=== PATIENT | female | born 1940 | race Caucasian/White ===

== ENCOUNTER 2019-09-28 05:39 | Emergency (ER) | payer MEDICARE, SELFPAY ==
[2019-09-28] VITALS (38 sets, daily range): BP systolic 120–171; BP diastolic 74–118; PULSE 75–103; RESP 12–20; TEMP 36.6; O2SAT 94–98; BMI 29.9
--- NOTE | 2019-09-28 06:01 | PC.NURSE ---
pt presents to ed with c/o's of allergic reaction to unknown substance. reports having swollen red tongue and throat. with headache that began in back of neck but is now in the frontal lobe. also reports having some pressure in chest that she rates a 4-5/10.
--- NOTE | 2019-09-28 06:02 | XRR_ITS ---
PROCEDURE INFORMATION: Exam: XR Chest, 1 View Exam date and time: 09/28/2019 6:05 AM Age: 78 years old Clinical indication: Allergic reaction; Dyspnea TECHNIQUE: Imaging protocol: XR of the chest Views: 1 view. COMPARISON: No relevant prior studies available. FINDINGS: Lungs: No lung consolidation or pulmonary edema. Calcified granuloma in the left mid lung zone. Pleural space: No pleural effusion or pneumothorax. Heart/Mediastinum: The heart is not enlarged. The mediastinal contours are normal. Calcified left hilar lymph nodes from prior granulomatous disease. Bones/joints: No acute osseous abnormality. XR/XR chest 1V portable [id number] IMPRESSION: No acute abnormality.
--- NOTE | 2019-09-28 06:02 | W.ED.ALLEREA ---
HPI - Allergic Reaction General: Chief complaint: Allergic Reaction Stated complaint: ALLERGIC REACTION Time Seen by Provider: 09/28/19 05:59 History of Present Illness: HPI narrative: 78-year-old female presents emergency room with complaint of swelling in her tongue. States she woke up with it she has had this in the past he does not know anything she took is new or different she not had any hives rash pruritus denies any difficulty breathing or wheezing. Took Benadryl prior to arriving. When first came to see the patient she is sitting comfortably she has no pruritus or hives no difficulty breathing. MD complaint: allergic reaction Onset (ago): hour(s) (2) Associated symptoms: Reports tongue swelling; Deny abdominal pain, difficulty breathing, difficulty swallowing, dizziness, facial swelling, hoarseness, itching, lip swelling, nausea, rash or vomiting Severity: mild Treatment prior to arrival: benadryl (50mg) Previous Allergic Reaction History: prior ED visit(s) Review of Systems Const: Denies: fever, chills, body aches, change in appetite, fatigue or malaise ENMT: Denies: hoarseness Card: Denies: chest pain, edema, shortness of breath on exertion or shortness of breath when lying down Resp: Denies: shortness of breath, productive cough or non-productive cough GI: Denies: abdominal pain, nausea, vomiting or difficulty swallowing : Denies: flank pain, difficulty urinating, painful urination, urinary frequency or urinary urgency Skin/Breast: Denies: rash or itching Neuro: Denies: dizziness All/Imm: Reports: tongue swelling; Denies: facial swelling PFSH ED PFSH: Statuses (acute, chronic, etc) shown below reflect problem list status as previously entered and may not be historically accurate Social History Smoking and tobacco status: former smoker Physical Exam Const: COMMON NORMALS: no apparent distress GENERAL APPEARANCE: cooperative and comfortable ORIENTATION/CONSCIOUSNESS: Yes awake, Yes oriented to person, Yes oriented to place and Yes oriented to time HENMT: COMMON NORMALS: normocephalic, head/scalp atraumatic, hearing grossly normal bilaterally, external ears normal, EAC's normal, TM's normal bilaterally, nasal mucous membranes and turbinates normal, moist oral mucous membranes and oropharynx normal HEAD & SCALP: normocephalic and atraumatic NOSE: nasal mucous membranes and turbinates normal EXTERNAL EAR: Yes external ears normal EXTERNAL AUDITORY CANAL: EAC's normal TYMPANIC MEMBRANE: TM's normal bilaterally Eye: COMMON NORMALS: PERRL, EOMs intact bilaterally, conjunctivae normal and no scleral icterus CONJUNCTIVA: Yes conjunctivae normal PUPIL: Yes PERRL Neck/C-Spine: COMMON NORMALS: full ROM, no lymphadenopathy, supple and no JVD Lymph: LYMPHATIC: no lymphadenopathy noted and no lymphedema noted Resp: COMMON NORMALS: normal respiratory effort, no retractions, no use of accessory muscles and clear to auscultation bilaterally AUSCULTATION: clear to auscultation bilaterally Cardio: COMMON NORMALS: no JVD, regular rate, regular rhythm and no murmurs RATE: regular rate RHYTHM: regular rhythm GI: COMMON NORMALS: soft to palpation and no hepatosplenomegaly AUSCULTATION: Yes normoactive bowel sounds PALPATION: Yes soft, No tender, No guarding and Yes no hepatosplenomegaly Extremity: COMMON NORMALS: normal to inspection, normal capillary refill, no clubbing, cyanosis or edema, no calf tenderness and no pedal edema Neuro: SENSORIUM/ORIENTATION: Yes oriented to person, Yes oriented to place and Yes oriented to time Skin: COMMON NORMALS: no rashes or lesions noted GENERAL SKIN EXAM: no rashes or lesions noted Course ED course: Patient had no significant hives or wheezing. She was observed for a time and was doing well no further complaints and was discharged home she did complain of some chest tightness we did a serial troponin which was negative as well return if has worsening symptoms. Vital Signs: Vital signs: Vital Signs Temperature 97.8 F 09/28/19 05:45 Pulse Rate 102 H 09/28/19 08:57 Respiratory Rate 14 09/28/19 08:57 Blood Pressure 137/79 09/28/19 08:57 Pulse Oximetry 95 09/28/19 08:57 MDM - Allergic Reaction Lab Data: Labs: Lab Results 09/28/19 09/28/19 09/28/19 Range/Units 06:20 06:20 06:20 WBC 8.6 (4.0-10.0) 10^3/ uL RBC 4.74 (4.1-5.3) 10^6/u L Hgb 13.7 (11.5-15.3) g/dL Hct 41.6 (37.0-47.0) % MCV 87.8 (81-99) fL MCH 28.9 (28.0-34.0) pg MCHC 32.9 (30.0-36.0) g/dL RDW 12.7 (12.1-15.1) % Plt Count 129 L (130-400) 10^3/c mm MPV 11.8 H (7.4-10.4) fL Neut % (Auto) 46.5 % Lymph % (Auto) 40.7 % [place] % (Auto) 8.9 % Eos % (Auto) 2.3 % Baso % (Auto) 0.8 % Neut # (Auto) 4.0 (1.8-7.7) 10^3/u L Lymph # (Auto) 3.5 (0.8-4.8) 10^3/u L [place] # (Auto) 0.8 (0.2-0.9) 10^3/u L Eos # (Auto) 0.2 (0.0-0.8) 10^3/u L Baso # (Auto) 0.1 (0.0-0.1) 10^3/u L Nucleated RBC % (a uto) 0 % Nucleated RBCs # 0.0 /100WBC Sodium 136 (136-145) mmol/L Potassium 4.7 (3.5-5.1) mmol/L Chloride 100 (98-107) mmol/L Carbon Dioxide 23 (22-29) mmol/L Anion Gap 17.7 (5-19) BUN 13 (8-23) mg/dL Creatinine 0.6 (0.5-0.9) mg/dL Glucose 217 H (74-106) mg/dL Calcium 9.8 (8.8-10.2) mg/Dl Total Bilirubin 0.8 (0.15-1.2) mg/dL AST 32 (0-32) U/L ALT 23 (0-33) U/L Alkaline Phosphata se 98 (35-105) IU/L Troponin T Baselin e 8 (0-10) ng/mL Troponin T 120 Min lummi (0-10) ng/mL Delta Troponin T (0-10) ABS# Total Protein 7.8 (6.6-8.7) g/dL Albumin 4.4 (3.5-5.2) g/dL Globulin 3.4 (1.3-4.6) g/dL 09/28/19 Range/Units 08:20 WBC (4.0-10.0) 10^3/ uL RBC (4.1-5.3) 10^6/u L Hgb (11.5-15.3) g/dL Hct (37.0-47.0) % MCV (81-99) fL MCH (28.0-34.0) pg MCHC (30.0-36.0) g/dL RDW (12.1-15.1) % Plt Count (130-400) 10^3/c mm MPV (7.4-10.4) fL Neut % (Auto) % Lymph % (Auto) % [place] % (Auto) % Eos % (Auto) % Baso % (Auto) % Neut # (Auto) (1.8-7.7) 10^3/u L Lymph # (Auto) (0.8-4.8) 10^3/u L [place] # (Auto) (0.2-0.9) 10^3/u L Eos # (Auto) (0.0-0.8) 10^3/u L Baso # (Auto) (0.0-0.1) 10^3/u L Nucleated RBC % (a uto) % Nucleated RBCs # /100WBC Sodium (136-145) mmol/L Potassium (3.5-5.1) mmol/L Chloride (98-107) mmol/L Carbon Dioxide (22-29) mmol/L Anion Gap (5-19) BUN (8-23) mg/dL Creatinine (0.5-0.9) mg/dL Glucose (74-106) mg/dL Calcium (8.8-10.2) mg/Dl Total Bilirubin (0.15-1.2) mg/dL AST (0-32) U/L ALT (0-33) U/L Alkaline Phosphata se (35-105) IU/L Troponin T Baselin e (0-10) ng/mL Troponin T 120 Min lummi 7.83 (0-10) ng/mL Delta Troponin T -0.17 L (0-10) ABS# Total Protein (6.6-8.7) g/dL Albumin (3.5-5.2) g/dL Globulin (1.3-4.6) g/dL Discharge Plan Discharge Patient Disposition: Home, Self-Care Clinical Impression: Allergic reaction Condition: Stable Prescriptions: No Action Aspirin Low Dose 81 mg 81 mg PO RF: 0 atenolol 25 mg 25 mg PO BID RF: 0 Discharge Orders: Discharge Order (Routine); Ordered 09/28/19 Ordered By: Mitchell Paris Referrals: Lamont Ribera, [facility] [Primary Care Provider] - Discharge Diet: Advance as tolerated Discharge Activity: Increase activity as tolerated Patient Instructions: Allergic Reaction, Diphenhydramine (By mouth) Activity Restrictions/Additional Instructions: You may use [id number] Benadryl as needed for symptoms follow-up with your primary care physician as needed return to the ER if symptoms worsen. 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
[2019-09-28 06:27] LABS: Basophils # 0.1 10^3/uL (0.0-0.1); Basophils % 0.8 %; Eosinophils # 0.2 10^3/uL (0.0-0.8); Eosinophils % 2.3 %; Hematocrit 41.6 % (37.0-47.0); Hemoglobin 13.7 g/dL (11.5-15.3); Lymphocytes # 3.5 10^3/uL (0.8-4.8); Lymphocytes % 40.7 %; Mean Corpuscular HGB Conc 32.9 g/dL (30.0-36.0); Mean Corpuscular Hemoglobin 28.9 pg (28.0-34.0); Mean Corpuscular Volume 87.8 fL (81-99); Mean Platelet Volume 11.8 fL (7.4-10.4); Monocytes # 0.8 10^3/uL (0.2-0.9); Monocytes % 8.9 %; Neutrophils % 46.5 %; Nucleated Red Blood Cells % 0 %; Platelet Count 129 10^3/cmm (130-400); Red Blood Count 4.74 10^6/uL (4.1-5.3); Red Cell Distribution Width 12.7 % (12.1-15.1); White Blood Count 8.6 10^3/uL (4.0-10.0)
[2019-09-28] MEDS: famotidine 20 mg/2 mL INJ 40 MG IVP (06:29)
[2019-09-28 06:42] LABS: Alanine Aminotransferase 23 U/L (0-33); Albumin Level 4.4 g/dL (3.5-5.2); Alkaline Phosphatase 98 IU/L (35-105); Anion Gap 17.7 (5-19); Blood Urea Nitrogen 13 mg/dL (8-23); Calcium 9.8 mg/Dl (8.8-10.2); Carbon Dioxide 23 mmol/L (22-29); Chloride 100 mmol/L (98-107); Globulin 3.4 g/dL (1.3-4.6); Glucose 217 mg/dL (74-106); Potassium 4.7 mmol/L (3.5-5.1); Sodium 136 mmol/L (136-145); Total Bilirubin 0.8 mg/dL (0.15-1.2); Total Protein 7.8 g/dL (6.6-8.7)
[2019-09-28 06:43] LABS: Troponin(5th) Baseline 8 ng/mL (0-10)
[2019-09-28 06:44] LABS: Aspartate Amino Transferase 32 U/L (0-32)
--- NOTE | 2019-09-28 07:02 | PC.NURSE ---
Report received from Whitley Myers RN.
--- NOTE | 2019-09-28 07:25 | PC.NURSE ---
Pt ambulated to and from bathroom with no assist
[2019-09-28 08:50] LABS: Troponin 5 2HR 7.83 ng/mL (0-10)
[2019-09-28 09:13] LABS: Troponin 5 2HR Delta -0.17 ABS# (0-10)
--- NOTE | 2019-09-28 12:17 | ECG_ITS ---
Measurements Intervals [place] Rate: 77 P: SD: 0 QRS: -31 QRSD: 78 T: 13 QT: 399 QTc: 452 ATRIAL FIBRILLATION LEFT AXIS DEVIATION [QRS AXIS < -30] No previous ECG available for comparison Electronically Signed On 09-28-2019 11:33:51 RN NEONATAL ICU by Wilfredo Ruiz M.D. [email or web address]
== END 2019-09-28 09:05 | disposition home or self-care (01) ==
PROVIDERS: Emergency Provider Family Medicine; Family Provider Nurse Practitioner; PCP Nurse Practitioner
DX: T78.40XA Allergy, unspecified, initial encounter (principal); X58.XXXA Exposure to other specified factors, initial encounter; Z79.82 Long term (current) use of aspirin; Z87.891 Personal history of nicotine dependence
CPT/HCPCS: 36415; 71045; 80053; 84484; 85025; 93005; 96374; 99283; J2930; J3490

== ENCOUNTER → 2019-10-04 11:23 | Outpatient (BNVA) | payer MEDICARE, SELFPAY | PROVIDERS: Family Provider Nurse Practitioner; PCP Nurse Practitioner; Visit Provider Nurse Practitioner | DX: E11.9 Type 2 diabetes mellitus without complications (principal); E03.8 Other specified hypothyroidism | CPT/HCPCS: 81003; 83036; 84443 ==

== ENCOUNTER 2020-02-14 20:52 | Inpatient (IN) | payer MEDICARE, SELFPAY ==
[2020-02-14] VITALS (7 sets, daily range): BP systolic 107–147; BP diastolic 81–84; PULSE 88–107; RESP 17–22; TEMP 37.1; O2SAT 97–99; BMI 29.7
--- NOTE | 2020-02-14 21:06 | XRR_ITS ---
PROCEDURE INFORMATION: Exam: XR Right Femur Exam date and time: 02/14/2020 9:38 PM Age: 79 years old Clinical indication: Injury or trauma; Fall; Initial encounter; Blunt trauma; Thigh or upper leg; Right TECHNIQUE: Imaging protocol: XR Right femur. Views: 2 views. COMPARISON: No relevant prior studies available. FINDINGS: Bones/joints: There is a mildly overriding right intertrochanteric femur fracture. There is mild medial displacement of the lesser trochanter. No fracture in the distal femur. No definite knee joint effusion. Soft tissues: Unremarkable. XR/XR femur RT min 2V* [id number] IMPRESSION: There is a mildly overriding right intertrochanteric femur fracture.
--- NOTE | 2020-02-14 21:06 | XRR_ITS ---
PROCEDURE INFORMATION: Exam: XR Right Hip with Pelvis when Performed Exam date and time: 02/14/2020 9:08 PM Age: 79 years old Clinical indication: Injury or trauma; Fall; Initial encounter; Blunt trauma (contusions or hematomas); Right; Hip TECHNIQUE: Imaging protocol: XR Right hip with pelvis when performed. Views: 1 view. COMPARISON: No relevant prior studies available. FINDINGS: Bones/joints: There is a mildly overriding and angulated right intertrochanteric femur fracture. There is medial displacement of the lesser trochanter fragment. There are moderate to severe degenerative changes in the right hip. Soft tissues: Unremarkable. XR/XR hip RT 2-3V wo/w pel* [id number] IMPRESSION: There is a mildly overriding and angulated right intertrochanteric femur fracture.
[2020-02-14] MEDS: fentaNYL 50 mcg/mL INJ 2mL IVP ×3 (21:19→23:14)
--- NOTE | 2020-02-14 22:32 | P.HP_ITS ---
Providers/Chief Complaint Primary Care Provider: Lamont Ribera, CORIEC Chief Complaint: FALL/HIP PAIN History of Present Illness Adwoa Geramin is a 79 year old female who carries diagnosis of hypothyroidism, diabetes, atrial fibrillation not on anticoagulation, does not take any levothyroxine or anti-hyperglycemics came in after sustaining a fall. Patient is stating that she does not like to take any medications, she is only taking atenolol, today she was playing [employer] with her family, she lost her balance and fell on her right side, she was not able to bear any weight on her right leg. On review of previous records her TSH is 5 and hemoglobin A1c 8.8, she does not like to take any medications, she is stating that for her A. fib when she started taking anticoagulation she developed allergies and would like to not use anticoagulation. She seemed surprised when I asked her if she knew about the risk of stroke. At baseline she is very active, she is currently living with her extended family. Diagnostics in the ER revealed hypotension, tachycardia, right hip intertrochanteric fracture Orthopedic surgeon consulted Blood work was not obtained in the ER Review of Systems Const: Reports: fatigue; Denies: fever(s), chills or body aches Eyes: Denies: change in vision ENMT: Denies: throat pain Card: Denies: chest pain Resp: Denies: dyspnea GI: Reports: constipation; Denies: abdominal pain : Denies: flank pain Musc: Denies: neck pain Skin/Breast: Denies: rash Neuro: Denies: headache(s) Psych: Denies: anxiety Endo: Denies: polyuria Toi/Lymph: Denies: easy bruising All/Imm: Denies: urticaria Medications/Allergies Home Medications Medication Instructions Recorded Confirmed Last Taken Type Aspirin Low Dose 81 mg PO 09/28/19 10/04/19 Unknown History atenolol 25 mg PO BID 09/28/19 10/04/19 09/27/19 History thyroid (pork) 30 mg tablet 30 mg PO QDAY #30 tab 10/04/19 10/04/19 Unknown Rx Allergies Allergy/AdvReac Type Severity Reaction Status Date / Time apixaban [From Eliquis] Allergy ALGY-Difficulty Verified 09/28/19 05:51 Swallowing codeine Allergy ALGY-Difficulty Verified 09/28/19 05:51 Swallowing metformin AdvReac Severe Diarrhea Verified 10/04/19 11:25 PFSH Acute PFSH: Medical History Adult onset hypothyroidism Atrial fibrillation 2013 Diabetes Surgical History History of cholecystectomy age 29 History of tonsillectomy age 23 Family History Mother Cancer Lung Father Cancer Throat and lung Brother Cancer Lung brain Sister Cancer Breast and bone Diabetes Lung disease Social History Smoking and tobacco status: never smoked Smoking risk assessment/counseling performed?: No Alcohol intake: never Desire information about alcohol rehabilitation?: No Counseling given: No Desire information about substance/drug rehabilitation?: No Counseling given: No Caregiver/support person: No Lives independently: Yes Household members: family Housing: House Marital status: / Number of children: 3 service: No Current occupational status: retired Current occupational exposures/hazards: No History of recent travel: No Current gender identity: Female Vitals/I&O/Wt Last Vital Signs Temp 98.7 F 02/14/20 21:05 Pulse 107 H 02/14/20 21:47 Resp 20 H 02/14/20 22:00 BP 147/81 02/14/20 21:47 Pulse Ox 99 02/14/20 22:00 Weight last 48 hrs Weight 76.204 kg Physical Exam Narrative: EXAM NARRATIVE: Head to toe examination Patient in left lateral decubitus position Right hip pain 8/10 No vascular compromise of lower extremity S1, S2, variable, systolic murmur right second intercostal space, grade 2/6 Abdomen soft, nontender, distended, obese obesity, bloated, bowel sound present Neurologically nonfocal exam Her mood seems to be low with mild signs of depression Awake alert oriented x3 GCS 15 Skin does not show any ischemia gangrene ulcer No active bleed Shoulder pain without any acute bony abnormality EOMI, PERRLA Reflexes equivocal No active respiratory disease A&P Assessment and plan (1) Fracture, intertrochanteric, right femur: Status: Acute (2) Diabetes: Status: Chronic (3) Adult onset hypothyroidism: Status: Chronic (4) Atrial fibrillation: Status: Chronic Additional A&P Information Right hip fracture after sustaining a fall Patient considers herself moderately active for her age She is not on appropriate medications for her hypothyroidism or poorly controlled diabetes, She might experience more perioperative complications such as delayed wound healing and postoperative A. fib Would not recommend cardiac stress test as this would be considered urgent orthopedic surgery Orthopedic consult N.p.o. D5 half-normal saline at 30 cc/h Analgesic control with morphine and as needed Tylenol Bowel regimen senna S DVT prophylaxis to be added after surgery A. fib with RVR Continue atenolol to prevent perioperative worsening of A. fib not on anticoagulation At the time of discharge she might be a good candidate to start anticoagulation, I do not think she had good insight for the complications related to A. fib, she seemed very surprised when her I asked her about the risk of stroke from not taking anticoagulation with A. fib Hypothyroidism: Poorly controlled, TSH 8.2 She is still declining use of levothyroxine Poorly controlled diabetes A1c 8.8 Poor insight Will need diabetic teaching before discharge DVT prophylaxis: SCDs for now, post operative will need anticoagulation N.p.o. Full code Attestations Medical Necessity Statement*: Anticipating stay in the hospital cross more than 2 midnights currently needs surgery for right hip fracture and management of multiple comorbid conditions Time Spent in Patient Care: 60mins 5 minutes of counseling regarding her complications related to perioperative p eriod. And poorly controlled hypothyroidism and diabetes Coding Level of Care Code Acute [employer] Clerk for [facility] Fwd Diagnoses Fracture, intertrochanteric, right femur S72.141A Diabetes E11.9 Adult onset hypothyroidism E03.8 Atrial fibrillation I48.91
[2020-02-14 23:06] LABS: Basophils % 0.3 %; Eosinophils % 0.3 %; Hematocrit 40.9 % (37.0-47.0); Hemoglobin 13.2 g/dL (11.5-15.3); Lymphocytes # 1.6 10^3/uL (0.8-4.8); Lymphocytes % 16.9 %; Mean Corpuscular HGB Conc 32.3 g/dL (30.0-36.0); Mean Corpuscular Hemoglobin 29.1 pg (28.0-34.0); Mean Corpuscular Volume 90.3 fL (81-99); Mean Platelet Volume 11.6 fL (7.4-10.4); Monocytes # 0.6 10^3/uL (0.2-0.9); Monocytes % 6.3 %; Neutrophils # 6.9 10^3/uL (1.8-7.7); Neutrophils % 75.5 %; Nucleated Red Blood Cells % 0 %; Platelet Count 138 10^3/cmm (130-400); Red Blood Count 4.53 10^6/uL (4.1-5.3); Red Cell Distribution Width 12.7 % (12.1-15.1); White Blood Count 9.2 10^3/uL (4.0-10.0)
[2020-02-14 23:18] LABS: Alanine Aminotransferase 23 U/L (0-33); Albumin Level 4.1 g/dL (3.5-5.2); Alkaline Phosphatase 90 IU/L (35-105); Anion Gap 19.5 (5-19); Aspartate Amino Transferase 28 U/L (0-32); Blood Urea Nitrogen 14 mg/dL (8-23); Calcium 9.6 mg/dL (8.5-10.5); Carbon Dioxide 23 mmol/L (22-29); Chloride 98 mmol/L (98-107); Globulin 3.1 g/dL (1.3-4.6); Glucose 428 mg/dL (65-115); Osmolality Calculated 297 mOsm/kg (285-295); Potassium 4.5 mmol/L (3.5-5.1); Sodium 136 mmol/L (136-145); Total Bilirubin 0.6 mg/dL (0.15-1.2); Total Protein 7.2 g/dL (6.6-8.7)
[2020-02-15] VITALS (18 sets, daily range): BP systolic 115–156; BP diastolic 71–93; PULSE 72–100; RESP 14–20; TEMP 36.4–37.3; O2SAT 93–98
--- NOTE | 2020-02-15 | SCC_ITS ---
Procedure Done: Open reduction internal fixation right intratrochanteric fracture with intramedullary implant 106.0 seconds of fluoroscopic guidance, for a cumulative dose of 13.51 mGy, was provided to Dr. Troy by the radiology department. C-arm images of the RIGHT femur were saved for the patient's permanent record. [facility]
--- NOTE | 2020-02-15 | XRR_ITS ---
PROCEDURE INFORMATION: Exam: XR Right Femur Exam date and time: 02/16/2020 9:02 AM Age: 79 years old Clinical indication: Injury or trauma; Fall; Initial encounter; Fracture, traumatic; Closed fracture; Femur; Right; Injury date: 02/13; Additional info: Orif in surgery TECHNIQUE: Imaging protocol: XR Right femur. Views: 2 views. COMPARISON: CR (LOW EXM, ) 02/14/2020 9:14 PM FINDINGS: Bones/joints: Four fluoroscopic views of the right femur demonstrate intramedullary alex and compression screw stabilization of and inter trochanteric proximal femoral fracture. Soft tissues: Unremarkable. Other findings: DLP(mGy): 13.51; Fluoroscopic time: 106 seconds XR/XR femur RT min 2V* [id number] IMPRESSION: Four fluoroscopic views of the right femur demonstrate intramedullary alex and compression screw stabilization of and inter trochanteric proximal femoral fracture. Recommend plain film correlation.
[2020-02-15] MEDS: fentaNYL 50 mcg/mL INJ 2mL IVP (00:24)
--- NOTE | 2020-02-15 00:50 | W.ED.FALL ---
HPI - Fall General: Chief Complaint: Fall Stated Complaint: FALL/HIP PAIN Time Seen by Provider: 02/14/20 21:03 Source: patient, family and EMS Mode of arrival: EMS Limitations: other (pain) History of Present Illness: HPI Narrative: Patient was playing in the garden with her daughter when she tripped over her slippers and fell. she landed on her right hip. She has severe pain in the right hip and thigh and is unable to ambulate. In fact she is laying on her left lateral position and refuses to move from that position. complaint: fall Onset (ago): hour(s) (1) Fall from: standing Fall witnessed: yes, by family Place fall occurred: home (outside) Loss of consciousness: None Symptoms prior to fall: none Context: tripped/slipped Location of injury - extremities: Right: lower leg (right hip and thigh) Severity: severe Quality: sharp Associated symptoms-after fall: Reports difficulty walking; Denies abdominal pain, chest pain or neck pain Review of Systems General: Reports: 10 or more systems reviewed and unremarkable except in HPI and below Const: Denies: fever(s), chills or body aches ENMT: Denies: throat pain, enlarged tonsils, odynophagia, hoarseness, mouth pain or swelling of lips/tongue Card: Denies: chest pain, palpitations, irregular heart rhythm, edema or swelling of feet/ankles Resp: Denies: dyspnea, productive cough or non-productive cough GI: Denies: abdominal pain, nausea or vomiting : Denies: flank pain, difficulty voiding, dysuria, urinary frequency, urinary urgency or urinary hesitancy Musc: Reports: extremity pain, joint pain and limited range of motion; Denies: neck pain, back pain or extremity swelling Skin/Breast: Denies: rash, pruritus or erythema Neuro: Reports: difficulty walking Endo: Denies: polyuria, polydipsia or tired all the time [facility] ED PFSH: Medical History (Updated 02/15/20 @ 01:02 by Spencer Do [place] [facility] [place] Adult onset hypothyroidism Atrial fibrillation Diabetes Surgical History History of cholecystectomy age 29 History of tonsillectomy age 23 Family History Mother Cancer Lung Father Cancer Throat and lung Brother Cancer Lung brain Sister Cancer Breast and bone Diabetes Lung disease Social History Smoking and tobacco status: never smoked Smoking risk assessment/counseling performed?: No Alcohol intake: never Desire information about alcohol rehabilitation?: No Counseling given: No Desire information about substance/drug rehabilitation?: No Counseling given: No Caregiver/support person: No Lives independently: Yes Household members: family Housing: House Marital status: / Number of children: 3 service: No Current occupational status: retired Current occupational exposures/hazards: No History of recent travel: No Current gender identity: Female Physical Exam Const: COMMON NORMALS: average body habitus, patient oriented x3, no limitations, healthy appearing, alert and well nourished GENERAL APPEARANCE: in distress (painful) HENMT: COMMON NORMALS: normocephalic, atraumatic and moist oral mucous membranes HEAD & SCALP: normocephalic and atraumatic Eye: COMMON NORMALS: Equal, round and reactive pupils present, EOMs intact bilaterally, conjunctivae normal and no scleral icterus CONJUNCTIVA: Yes conjunctivae normal PUPIL: Yes Equal, round and reactive pupils present Neck/C-Spine: COMMON NORMALS: full ROM, supple, no meningeal signs, no JVD and No carotid bruits Chest: COMMONS NORMALS: normal inspection of the chest and normal palpation of entire chest wall Resp: COMMON NORMALS: normal respiratory effort, No retractions, No use of accessory muscles, clear to auscultation bilaterally and percussion normal AUSCULTATION: clear to auscultation bilaterally PERCUSSION: percussion normal Cardio: COMMON NORMALS: no JVD, regular rate, regular rhythm, S1 normal heart sound present, S2 normal heart sound present, No gallops present (Cardio), No clicks present (Cardio), No murmurs present (Cardio), No rub (Cardio) and Peripheral pulses 2+ throughout RATE: regular rate RHYTHM: regular rhythm HEART SOUNDS: S1 normal heart sound present and S2 normal heart sound present PERIPHERAL PULSES: Peripheral pulses 2+ throughout GI: COMMON NORMALS: Normal to inspection, nondistended, normoactive bowel sounds present, Soft to palpation, non-tender, No hepatosplenomegaly present, no masses and no bruits PALPATION: Yes Soft to palpation and Yes No hepatosplenomegaly present : COMMON NORMALS: Yes no CVA tenderness BLADDER/KIDNEY EXAM: Yes no CVA tenderness Back/Pelvis: COMMON NORMALS: no CVA tenderness Extremity: COMMON NORMALS: normal to inspection, capillary refill normal, no calf tenderness and no pedal edema; negative for full ROM RIGHT LOWER EXTREMITY: Yes hip joint Right hip: Yes palpation (tender), Yes ROM (severely decreased) and Yes neurovascular exam (dorsalis pedis palpable on the right. Brisk capillary refill.) and Yes upper leg Right upper leg: Yes palpation (tender) Neuro: COMMON NORMALS: patient oriented x3 SENSORIUM/ORIENTATION: Yes alert MENINGEAL SIGNS: Yes no meningeal signs Skin: COMMON NORMALS: no rashes or lesions noted, no wounds, turgor normal, no jaundice, no petechiae and no mottling GENERAL SKIN EXAM: no rashes or lesions noted and turgor normal Course Consultations: Consultation #1: Discussed with Dr. Troy, orthopedic surgeon military education coordinator. Patient should be admitted to the hospitalist and he will see the patient in the morning. Time: 22:20 Consultation #2: Dr. Page, hospitalist. He kindly accepted the patient to his service. Time: 22:31 Vital Signs: Vital signs: Vital Signs Temperature 98.8 F 02/15/20 00:41 Pulse Rate 100 02/15/20 00:41 Respiratory Rate 20 H 02/15/20 00:41 Blood Pressure 141/83 02/15/20 00:41 Pulse Oximetry 98 02/15/20 00:41 MDM - Fall MDM Narrative: Medical decision making narrative: 79-year-old female patient who had a ground-level fall while playing in the garden today. She sustained an intertrochanteric fracture of her left hip. She is admitted for pain control and surgical repair of the fracture. Medical Records: Attestation: I reviewed the patient's medical records. Lab Data: Attestation: I reviewed the patient's lab results. Imaging Data^: Xray Ortho: Radiologist's impression: [address] [address] XRay Report Signed Patient: Chapito GermainRoseanne #: [id number] : 1940Acct#:[id number] Age/Sex: 79 / FADM Date: 02/14/20 Loc: ERRoom/Bed: Attending Dr: Ordering Provider/Ordering MD: Spencer Do MD, [facility] [place] Date of Service: 02/14/20 Procedure(s): XR hip RT 2-3V wo/w pel* [id number] Accession Number(s): [id number] Report Number: [id number] PROCEDURE INFORMATION: Exam: XR Right Hip with Pelvis when Performed Exam date and time: 02/14/2020 9:08 PM Age: 79 years old Clinical indication: Injury or trauma; Fall; Initial encounter; Blunt trauma (contusions or hematomas); Right; Hip TECHNIQUE: Imaging protocol: XR Right hip with pelvis when performed. Views: 1 view. COMPARISON: No relevant prior studies available. FINDINGS: Bones/joints: There is a mildly overriding and angulated right intertrochanteric femur fracture. There is medial displacement of the lesser trochanter fragment. There are moderate to severe degenerative changes in the right hip. Soft tissues: Unremarkable. XR/XR hip RT 2-3V wo/w pel* [id number] IMPRESSION: There is a mildly overriding and angulated right intertrochanteric femur fracture. Dictated By:Jenny Coley Signed By:Mari Coley Date/Time:02/14/202211 DD/ 10 Discharge Plan Discharge Patient Disposition: Admitted As Inpatient Admit Provider: Hannah Page Clinical Impression: Fracture, intertrochanteric, right femur Condition: Stable Interventions: ED Discharge Assessment Last Done: 02/15/20 00:27 ED Charges Last Done: 02/15/20 00:27 Discharge Date/Time: 02/15/20 00:28 Coding Level of Care Code ED Vessel Captain for [facility]
[2020-02-15 00:55] LABS: Glucose Point of Care 352 mg/dL (70-110)
[2020-02-15] MEDS: sodium chloride 0.9% 1,000 ML 75 ML IV (01:08)
--- NOTE | 2020-02-15 04:18 | PC.NURSE ---
Patient is a Jehovah Witness Patient stated she does not want any Blood or blood products this hospital admission but would be willing to discuss this further with her care team.
[2020-02-15 04:56] LABS: Basophils % 0.3 %; Eosinophils % 0.1 %; Hematocrit 34.9 % (37.0-47.0); Hemoglobin 11.3 g/dL (11.5-15.3); Lymphocytes # 2.7 10^3/uL (0.8-4.8); Lymphocytes % 22.9 %; Mean Corpuscular HGB Conc 32.4 g/dL (30.0-36.0); Mean Corpuscular Hemoglobin 29.3 pg (28.0-34.0); Mean Corpuscular Volume 90.4 fL (81-99); Mean Platelet Volume 11.8 fL (7.4-10.4); Monocytes # 0.8 10^3/uL (0.2-0.9); Monocytes % 6.9 %; Neutrophils # 8.3 10^3/uL (1.8-7.7); Neutrophils % 69.3 %; Nucleated Red Blood Cells % 0 %; Platelet Count 129 10^3/cmm (130-400); Red Blood Count 3.86 10^6/uL (4.1-5.3); Red Cell Distribution Width 12.7 % (12.1-15.1); White Blood Count 11.9 10^3/uL (4.0-10.0)
[2020-02-15 05:04] LABS: INR 1.21 (0.8-1.2)
[2020-02-15 05:16] LABS: Anion Gap 14.9 (5-19); Blood Urea Nitrogen 13 mg/dL (8-23); Calcium 7.5 mg/dL (8.5-10.5); Carbon Dioxide 21 mmol/L (22-29); Chloride 106 mmol/L (98-107); Glucose 301 mg/dL (65-115); Osmolality Calculated 293 mOsm/kg (285-295); Potassium 3.9 mmol/L (3.5-5.1); Sodium 138 mmol/L (136-145)
[2020-02-15 06:58] LABS: Glucose Point of Care 287 mg/dL (70-110)
[2020-02-15] MEDS: atenolol 50 mg Tablet 25 MG PO (09:32)
[2020-02-15] MEDS: sennosides-docusate Tablet 1 TAB PO (09:32)
--- NOTE | 2020-02-15 11:21 | ANES.PREANE2 ---
Pre-Anesthetic Assessment Pre-Anesthetic Assessment: Height/Weight: Height 1.6 m Weight 76.204 kg Temp Pulse Resp BP Pulse Ox 97.5 F L 87 18 130/77 93 02/15/20 07:13 02/15/20 07:13 02/15/20 07:13 02/15/20 07:13 02/15/20 07:13 Preop Diagnosis: Femoral Fracture Proposed Procedure: Operation Date: 02/15/20 15:00 Proposed Procedures p IM Femoral Nail Insertion(Right) - Rafael Troy MD Familial anesthetic complications: None Was Beta Jose taken within 24 hours: Yes Last intake: NPO > 8 hrs Social: Social History: No alcohol and No tobacco Exam: Pre-Anes Outpt Exam: alert, oriented x 3, clear to auscultation bilaterally and regular rate & rhythm Additional Exam Findings (including area of procedure): a fib Airway: Cervical ROM: WNL MP: 2 Dentition: False Additional comments: dentures Pulmonary: Pulmonary: None reported CV/HEM: CV/HEM: Afib and Arrythmia Comments: Does not reliably take her eliquis : : None reported Hepatic: Hepatic: None reported GI: GI: None reported Metabolic: Metabolic: DM (Poorly controlled) and Thyroid Musc/skel: Musc/skel: None reported Neuropsych: Neuropsych: None reported Anesthetic Plan: ASA status: 3 Anesthesia: General Risk of > 500 ml blood loss (7ml/kg in children): No Meds/Allergies Current Medications: Current Medications Generic Name Dose Route Start Last Admin Trade Name Freq PRN Reason Stop Dose Admin Atenolol 25 mg 02/15/20 09:00 02/15/20 09:32 Tenormin PO 25 mg BID RAY Administration Fentanyl 50 mcg 02/14/20 22:33 02/14/20 23:14 Sublimaze IVP 50 mcg Q4H PRN Administration PAIN Sodium Chloride 1,000 mls @ 75 ml s/hr 02/15/20 01:00 02/15/20 01:08 Sodium Chloride 0.9% IV 75 mls/hr .[id number] RAY Administration Thyroid [place] 30g r 1 each 02/15/20 09:00 02/15/20 09:39 PO Not Given DAILY RAY Senna/Docusate Sod ium 1 tab 02/15/20 09:00 02/15/20 09:32 Senna-S PO 1 tab DAILY RAY Administration PFSH Anesthesia PFSH: Medical History (Updated 02/15/20 @ 01:02 [place] Do [place], [facility] [place] Adult onset hypothyroidism Atrial fibrillation Diabetes Surgical History History of cholecystectomy age 29 History of tonsillectomy age 23 Family History Mother Cancer Lung Father Cancer Throat and lung Brother Cancer Lung brain Sister Cancer Breast and bone Diabetes Lung disease Social History Smoking and tobacco status: never smoked Smoking risk assessment/counseling performed?: No Alcohol intake: never Desire information about alcohol rehabilitation?: No Counseling given: No Desire information about substance/drug rehabilitation?: No Counseling given: No Caregiver/support person: No Lives independently: Yes Household members: family Housing: House Marital status: / Number of children: 3 service: No Current occupational status: retired Current occupational exposures/hazards: No History of recent travel: No Current gender identity: Female Data Anesthesia CBC & Chem 7: 02/15/20 04:40 02/15/20 04:40 Other Labs: Laboratory Results - last 48 hr 02/14/20 02/14/20 02/15/20 22:50 22:50 00:52 WBC 9.2 RBC 4.53 Hgb 13.2 Hct 40.9 MCV 90.3 MCH 29.1 MCHC 32.3 RDW 12.7 Plt Count 138 MPV 11.6 H Neut % (Auto) 75.5 Lymph % (Auto) 16.9 Haines % (Auto) 6.3 Eos % (Auto) 0.3 Baso % (Auto) 0.3 Neut # (Auto) 6.9 Lymph # (Auto) 1.6 Haines # (Auto) 0.6 Eos # (Auto) 0.0 Baso # (Auto) 0.0 Nucleated RBC % (auto) 0 Nucleated RBCs # 0.0 PT INR Sodium 136 Potassium 4.5 Chloride 98 Carbon Dioxide 23 Anion Gap 19.5 H BUN 14 Creatinine 0.6 Glucose 428 H POC Glucose 352 Calculated Osmolality 297 H Calcium 9.6 Total Bilirubin 0.6 AST 28 ALT 23 Alkaline Phosphatase 90 Total Protein 7.2 Albumin 4.1 Globulin 3.1 02/15/20 02/15/20 02/15/20 04:40 04:40 04:40 WBC 11.9 H RBC 3.86 L Hgb 11.3 L Hct 34.9 L MCV 90.4 MCH 29.3 MCHC 32.4 RDW 12.7 Plt Count 129 L MPV 11.8 H Neut % (Auto) 69.3 Lymph % (Auto) 22.9 Haines % (Auto) 6.9 Eos % (Auto) 0.1 Baso % (Auto) 0.3 Neut # (Auto) 8.3 H Lymph # (Auto) 2.7 Haines # (Auto) 0.8 Eos # (Auto) 0.0 Baso # (Auto) 0.0 Nucleated RBC % (auto) 0 Nucleated RBCs # 0.0 PT 15.70 H INR 1.21 H Sodium 138 Potassium 3.9 Chloride 106 Carbon Dioxide 21 L Anion Gap 14.9 BUN 13 Creatinine 0.5 Glucose 301 H POC Glucose Calculated Osmolality 293 Calcium 7.5 L Total Bilirubin AST ALT Alkaline Phosphatase Total Protein Albumin Globulin 02/15/20 06:43 WBC RBC Hgb Hct MCV MCH MCHC RDW Plt Count MPV Neut % (Auto) Lymph % (Auto) Haines % (Auto) Eos % (Auto) Baso % (Auto) Neut # (Auto) Lymph # (Auto) Haines # (Auto) Eos # (Auto) Baso # (Auto) Nucleated RBC % (auto) Nucleated RBCs # PT INR Sodium Potassium Chloride Carbon Dioxide Anion Gap BUN Creatinine Glucose POC Glucose 287 Calculated Osmolality Calcium Total Bilirubin AST ALT Alkaline Phosphatase Total Protein Albumin Globulin Cardiac Studies: No Data to Display
[2020-02-15 11:31] LABS: Glucose Point of Care 224 mg/dL (70-110)
--- NOTE | 2020-02-15 13:16 | P.CONIM_ITS ---
Providers/Reason For Consult Consulting Physican/Specialty*: Rafael Troy, orthopedic surgery Reason for Consult*: Right intratrochanteric hip fracture Attending Physician: Lary Gardiner MD Primary Care Provider: BETZY Samano History of Present Illness History of Present Illness Adwoa Germain is a 79 year old female who fell yesterday in her yard applying a beanipnexusg tossing game. She described immediate pain and inability to bear weight on the right leg. She was transferred here to the [facility] emergency room radiographs revealed a right intertrochanteric hip fracture. She is admitted to medicine and has been cleared for surgery. Orthopedics is consulted for management of the fracture. Meds/Allergies Home Medications and Allergies Home Medications Medication Instructions Recorded Confirmed Last Taken Type Aspirin Low Dose 81 mg PO DAILY 09/28/19 02/15/20 Unknown History atenolol 25 mg PO BID 09/28/19 02/15/20 09/27/19 History thyroid (pork) 30 mg tablet 30 mg PO QDAY #30 tab 10/04/19 02/15/20 Unknown Rx Allergies Allergy/AdvReac Type Severity Reaction Status Date / Time apixaban [From Eliquis] Allergy ALGY-Difficulty Verified 09/28/19 05:51 Swallowing codeine Allergy ALGY-Difficulty Verified 09/28/19 05:51 Swallowing metformin AdvReac Severe Diarrhea Verified 10/04/19 11:25 Current Medications Current Medications Generic Name Dose Route Start Last Admin Trade Name Freq PRN Reason Stop Dose Admin Atenolol 25 mg 02/15/20 09:00 02/15/20 09:32 Tenormin PO 25 mg BID RAY Administration Fentanyl 50 mcg 02/14/20 22:33 02/14/20 23:14 Sublimaze IVP 50 mcg Q4H PRN Administration PAIN Sodium Chloride 1,000 mls @ 75 mls/hr 02/15/20 01:00 02/15/20 01:08 Sodium Chloride 0.9% IV 75 mls/hr .[id number] RAY Administration Thyroid [place] 30gr 1 each 02/15/20 09:00 02/15/20 09:39 PO Not Given DAILY RAY Senna/Docusate Sodium 1 tab 02/15/20 09:00 02/15/20 09:32 Senna-S PO 1 tab DAILY RAY Administration PFSH Acute PFSH: Medical History (Updated 02/15/20 @ 01:02 by Spencer Do MD, [facility] [place] Adult onset hypothyroidism Atrial fibrillation Diabetes Surgical History History of cholecystectomy age 29 History of tonsillectomy age 23 Family History Mother Cancer Lung Father Cancer Throat and lung Brother Cancer Lung brain Sister Cancer Breast and bone Diabetes Lung disease Social History Smoking and tobacco status: never smoked Smoking risk assessment/counseling performed?: No Alcohol intake: never Desire information about alcohol rehabilitation?: No Counseling given: No Desire information about substance/drug rehabilitation?: No Counseling given: No Caregiver/support person: No Lives independently: Yes Household members: family Housing: House Marital status: / Number of children: 3 service: No Current occupational status: retired Current occupational exposures/hazards: No History of recent travel: No Current gender identity: Female Vitals/I&O/Wt Last Vital Signs Temp 98.3 F 02/15/20 11:28 Pulse 78 02/15/20 11:28 Resp 18 02/15/20 11:28 BP 120/79 02/15/20 11:28 Pulse Ox 93 02/15/20 11:28 02/14/20 02/15/20 02/15/20 22:59 06:59 14:59 Output Total 1020 / 1020 Balance -1020 / -1020 Weight last 48 hrs Weight 168 lb Physical Exam Narrative: EXAM NARRATIVE: Patient a pleasant elderly female supine in bed in no obvious distress HEAD: Normocephalic/atraumatic. NECK: Soft supple nontender. HEART: Normal heart sounds, regular rhythm. CHEST: Clear to auscultation. ABDOMEN: Soft nontender nondistended. She has shortening and external rotation of the right hip. Is exquisite pain with motion of the right hip. She has a palpable right dorsalis pedis pulse. Will flex extend her toes or ankle on the right without obvious motor deficits. Urinary Catheter Management^: Kerr: Cath Placed During This Visit: yes Reason for Continuing Indwelling Catheter: Perioperative Use in Selected Surgeries Urinary Catheter Date of Insertion: 02/15/20 Urinary Catheter Time of Insertion: 00:05 Data Imaging^: Xray Ortho: My impression: I reviewed radiographs of the right hip. The patient appears to have a displaced right intratrochanteric hip fracture. She has osteopenia consistent with age A&P Assessment and plan (1) Fracture, intertrochanteric, right femur: I discussed options with the patient.. I told the patient we could treat this nonoperatively but certainly they would be at risk for medical problems without surgery. Theywould have problems with pain that would require narcotics for pain control. They would require a long period of bedrest mobility scooter repairer risk for pneumonia and skin breakdown. I discussed surgical intervention with the patient. I told them with open reduction internal fixation they should be able to be mobilized and resume ambulatory status. We can eliminate the problems associated with prolonged bed rest and would have better control of pain. Certainly there would be inherent risk with surgery. These would would include the risk of cardiac complications, stroke, infection, and even . I discussed risk of any orthopedic implant including nonunion, malunion, a component failure. I discussed the possible need for component removal. I discussed risk of deep venous thromboses and pulmonary emboli that are present with any treatment and the importance of DVT prophylaxis. The patient expressed good understanding of alternative treatments, seem to comprehend, and agrees to surgical intervention. Status: Acute Qualifiers: Encounter type: initial encounter Fracture alignment: nondisplaced Fracture type: closed Qualified Code(s): S72.144A - Nondisplaced intertrochanteric fracture of right femur, initial encounter for closed fracture Consult Attestations Medical Necessity Statement: Patient will require long-term home placement. Coding Level of Care Code Acute Marketing Campaign Analyst for [facility] Diagnoses Fracture, intertrochanteric, right femur S72.144A Encounter type: initial encounter Fracture alignment: nondisplaced Fracture type: closed
--- NOTE | 2020-02-15 14:10 | PC.CHAP ---
Pastoral Care Encounter/Spiritual Assessment Type of Contact [] Declined cap and stud machine operator visit [] Patient/Family/Request visit [] Outpatient visit [] Follow-up visit [] Physician referral [] Code/Alert [X] Routine visit [] Staff referral [] Actively dying [] Patient sleeping [] Family support [] [] Out of room [] Palliative care [] [] Receiving care in room [] Pre-surgical visit [] Trauma [] Long length of stay [] ICU visit [] Other: Relational/Emotional Strength [] Patient feels connected with others/family/visitors/staff [] Distress [] Loneliness/isolation [] Abandonment Spirituality of Patient [] Person of Kimber[place] [] Attends Caodaism of their [place] [] Believes in Prayer [] Reads Bible or Congregation materials [] There are Spiritual issues to be addressed Levi Maker Interventions [] Prayer [] Active listening [] Non-anxious presence [] Spiritual/emotional support [] Crisis/trauma care [] Spiritual counseling [] Bereavement support [] Provided bereavement packet [] Provided Bible/devotional materials [] Provided toy/stuffed animal, coloring book to patient or family member [] Provided Communion [] Anointing/[place] [] Salvation [] Completed spiritual assessment [] Other: Impact on Illness or Injury [] Angry [] Fearful [] Anxious [] Often cries [] Exhaustion [] Unable to work [] Unable to attend scientologist [] Unable to walk/stand [] Unable to read [] Unable to drive [] Unable to eat/drink [] Unable to sleep [] Unable to be with family [] Patient intubated [] Other: Summary Time spent with patient
--- NOTE | 2020-02-15 14:23 | P.PN_ITS ---
Subjective Subjective: Interval history: overnight labs and H&P reveiwed. c/o some back pain. Awaiting going to OR. No new complaints at this time Medications: Reviewed: Yes Vitals/I&O/Wt Last Vital Signs Temp 99.1 F 02/15/20 13:40 Pulse 72 02/15/20 13:40 Resp 16 02/15/20 13:40 BP 132/71 02/15/20 13:40 Pulse Ox 97 02/15/20 13:40 02/14/20 02/15/20 02/15/20 22:59 06:59 14:59 Output Total 1020 / 1020 Balance -1020 / -1020 Weight last 48 hrs Weight 76.204 kg Physical Exam Narrative: EXAM NARRATIVE: GEN: Awake, alert and oriented, no acute distress CVS: S1S2 N RS: CTA B/L Abd: Soft, nt/nd , bs+ HEALTHCARE BUSINESS ANALYST: no focal neuro deficits Urinary Catheter Management^: Kerr: Cath Placed During This Visit: yes Reason for Continuing Indwelling Catheter: Perioperative Use in Selected Surgeries Urinary Catheter Date of Insertion: 02/15/20 Urinary Catheter Time of Insertion: 00:05 Data : 02/15/20 04:40 02/15/20 04:40 A&P Assessment and plan (1) Fracture, intertrochanteric, right femur: Status: Acute Qualifiers: Encounter type: initial encounter Fracture alignment: nondisplaced Fracture type: closed Qualified Code(s): S72.144A - Nondisplaced intertrochanteric fracture of right femur, initial encounter for closed fracture (2) Diabetes: Status: Chronic (3) Adult onset hypothyroidism: Status: Chronic (4) Atrial fibrillation: Status: Chronic Additional A&P Information # Right hip fracture after sustaining a fall Planned for ORIF with IM nail today afternoon #hypothyroidism: TSH 8.24, check FT3 and FT4. Her medication list states she is on pork thyroid but uncertain if she takes this medication # poorly controlled diabetes, Hba1c 8.8, does not take medications It is imperative to control her blood sugar in the perioperative period. Fingersticks here ranging 224-352, start moderate scale sliding scale insulin. Start low as patient is otherwise insulin naive. She might experience more perioperative complications such as delayed wound healing # A. fib with RVR Continue atenolol to prevent perioperative worsening of A. fib not on anticoagulation though chads vasc score is 4 Will avoid starting anticoagulation in the immediate post op period- referral to cardiology as an outpatient DVT prophylaxis: SCDs for now prior to surgery N.p.o. Full code Attestations Medical Necessity Statement*: hip fracture for surgical repair today Coding Level of Care Code Acute Job Press Operator for [facility] Diagnoses Fracture, intertrochanteric, right femur S72.144A Encounter type: initial encounter Fracture alignment: nondisplaced Fracture type: closed Diabetes E11.9 Adult onset hypothyroidism E03.8 Atrial fibrillation I48.91
--- NOTE | 2020-02-15 15:17 | PM.OP ---
Operative Report Date of procedure: February 15, 2020 Pre-op Diagnosis: Right intertrochanteric hip Post-op diagnosis: same Post-op Findings: Same Procedure Done: Open reduction internal fixation right intratrochanteric fracture with intramedullary implant Implants: [place] gamma nail 11 mm x 340 mm 10.5 x 95 mm lag screw Pathology: none sent Surgeon: Rafael Troy Anesthesia: General Estimated blood loss (mL): 300 Findings: Patient had the previously described intertrochanteric hip fracture with a free lesser trochanteric fragment. She had osteopenia consistent with a Condition: stable Disposition: PACU Procedure: The patient was taken to the operating room. He was given 1 g of Ancef. He was positioned on the fracture table with the right lower extremity in gentle traction. A timeout was performed. A 2 cm long incision was made proximal to the greater trochanter scalpel blade. Dissection was carried down to tip the greater trochanter. A guidepin was passed manually from the tip of the trochanter down the shaft. The proximal reamer was utilized to open up the proximal canal. The canal was quite narrow and reaming was required for nail insertion. Sequential reaming was begun at 10 mm and carried up to 12.5 mm. An 11 mm by 340 mm Shahbaz gamma nail was passed down the canal without difficulty. Under visualization of fluoroscopy a guidepin was driven up into the head and neck at 125? angle. It was measured at 95 mm in length. A 95 mm lag screw was then placed, compression applied across the fracture, and the screw locked into place with the proximal locking pole. As excellent her cortical purchase was obtained no additional locking screw was placed. Intraoperative imaging was obtained verifying satisfactory position of the hardware and reduction of the fracture. Deep tissues were closed with 0 Vicryl as were subcutaneous tissues. The skin was closed with skin adriana. Sterile dressings were applied. The patient was extubated and taken to recovery room in stable condition.
[2020-02-15 17:08] LABS: Glucose Point of Care 265 mg/dL (70-110)
[2020-02-15] MEDS: thyroid 60 mg Tablet 30 MG PO (17:26)
[2020-02-15] MEDS: sodium chloride 0.45% 1,000 ML 80 ML IV (17:30)
[2020-02-15 21:27] LABS: Glucose Point of Care 292 mg/dL (70-110)
[2020-02-15] MEDS: ceFAZolin 1,000 MG in sodium chloride 0.9% (plus) 50 ML 100 MG IV (21:36)
[2020-02-16 00:18] VITALS: BP 137/84; PULSE 76; RESP 14; TEMP 37.1; O2SAT 95
[2020-02-16] MEDS: enoxaparin 40 mg/0.4 mL Syringe SUBCUT (03:07)
[2020-02-16 04:00] VITALS: BP 107/67; PULSE 77; RESP 12; TEMP 37.1; O2SAT 96
[2020-02-16] MEDS: sodium chloride 0.45% 1,000 ML 80 ML IV ×2 (05:17→17:29)
[2020-02-16] MEDS: ceFAZolin 1,000 MG in sodium chloride 0.9% (plus) 50 ML 100 MG IV ×2 (05:17→14:15)
[2020-02-16 05:28] LABS: Basophils % 0.1 %; Hematocrit 32.4 % (37.0-47.0); Hemoglobin 10.5 g/dL (11.5-15.3); Lymphocytes # 3.9 10^3/uL (0.8-4.8); Lymphocytes % 28.8 %; Mean Corpuscular HGB Conc 32.4 g/dL (30.0-36.0); Mean Corpuscular Hemoglobin 29.8 pg (28.0-34.0); Mean Platelet Volume 11.9 fL (7.4-10.4); Monocytes # 1.2 10^3/uL (0.2-0.9); Monocytes % 8.8 %; Neutrophils # 8.2 10^3/uL (1.8-7.7); Neutrophils % 61.3 %; Nucleated Red Blood Cells % 0 %; Platelet Count 156 10^3/cmm (130-400); Red Blood Count 3.52 10^6/uL (4.1-5.3); White Blood Count 13.4 10^3/uL (4.0-10.0)
[2020-02-16 05:43] LABS: Alanine Aminotransferase 27 U/L (0-33); Albumin Level 3.3 g/dL (3.5-5.2); Alkaline Phosphatase 70 IU/L (35-105); Anion Gap 15.2 (5-19); Aspartate Amino Transferase 37 U/L (0-32); Blood Urea Nitrogen 9 mg/dL (8-23); Calcium 8.7 mg/dL (8.5-10.5); Carbon Dioxide 22 mmol/L (22-29); Chloride 101 mmol/L (98-107); Globulin 2.7 g/dL (1.3-4.6); Glucose 251 mg/dL (65-115); Osmolality Calculated 282 mOsm/kg (285-295); Potassium 4.2 mmol/L (3.5-5.1); Sodium 134 mmol/L (136-145)
--- NOTE | 2020-02-16 06:13 | PC.NURSE ---
Patient does not want her Kerr catheter out until she is more awake. I explained to her this isnt the policy and the risk of infection increases the longer we leave it in. She said she understands that but would like taken out later when she is more awake and confident in her abilities to get up.
[2020-02-16 06:55] LABS: Glucose Point of Care 217 mg/dL (70-110)
[2020-02-16 07:07] VITALS: BP 113/70; PULSE 95; RESP 18; TEMP 36.7; O2SAT 96
[2020-02-16] MEDS: aspirin 81 mg EC Tablet PO (08:04)
[2020-02-16] MEDS: thyroid 60 mg Tablet 30 MG PO (08:04)
[2020-02-16 10:59] VITALS: BP 122/77; PULSE 89; RESP 18; TEMP 36.7; O2SAT 99
[2020-02-16 11:06] LABS: Glucose Point of Care 268 mg/dL (70-110)
[2020-02-16] MEDS: TRAMadol 50 mg Tablet PO (15:00)
[2020-02-16 15:03] VITALS: BP 102/67; PULSE 109; RESP 18; TEMP 36.7; O2SAT 97
--- NOTE | 2020-02-16 16:22 | PM.PN ---
Subjective Subjective: Interval history: Pain is well controlled. Patient is able to move out of bed to the commode into the bedside chair. With movement she does have some pain, however lying in bed she feels just fine. Mild leukocytosis of 13, likely related to postop state. Tachycardia of 109, however her atenolol seems to have been on hold. Medications: Reviewed: Yes Vitals/I&O/Wt Last Vital Signs Temp 98.0 F 02/16/20 15:03 Pulse 109 H 02/16/20 15:03 Resp 18 02/16/20 15:03 BP 102/67 02/16/20 15:03 Pulse Ox 97 02/16/20 15:03 02/16/20 02/16/20 02/16/20 06:59 14:59 22:59 Intake Total 1232.667 / 2212.667 60 / 60 Output Total 1650 / 2150 1000 / 1000 Balance -417.333 / 62.667 -940 / -940 Weight last 48 hrs Weight 76.204 kg Physical Exam Narrative: EXAM NARRATIVE: GEN: Awake, alert and oriented, no acute distress CVS: S1S2 N RS: CTA B/L Abd: Soft, nt/nd , bs+ BOOKKEEPING ASSISTANT: no focal neuro deficits Urinary Catheter Management^: Kerr: Cath Placed During This Visit: yes, but has since been removed by the nurse Reason for Continuing Indwelling Catheter: Perioperative Use in Selected Surgeries Urinary Catheter Date of Insertion: 02/15/20 Urinary Catheter Time of Insertion: 00:05 Date Urinary Catheter Removed: 02/16/20 Time Urinary Catheter Discontinued: 08:10 Data : 02/16/20 05:02 02/16/20 05:02 A&P Assessment and plan (1) Fracture, intertrochanteric, right femur: Status: Acute Qualifiers: Encounter type: initial encounter Fracture alignment: nondisplaced Fracture type: closed Qualified Code(s): S72.144A - Nondisplaced intertrochanteric fracture of right femur, initial encounter for closed fracture (2) Diabetes: Status: Chronic (3) Adult onset hypothyroidism: Status: Chronic (4) Atrial fibrillation: Status: Chronic Additional A&P Information # Right hip fracture after sustaining a fall s/p ORIF with IM nail 02/14 wound care per surgical team. PT OT to continue. #hypothyroidism: TSH 8.24 Patient states she has been prescribed for thyroid, however takes this medication very inconsistently. States upon discharge that she will take this regularly and repeat TSH in a month with her primary care provider. # poorly controlled diabetes, Hba1c 8.8, does not take medications It is imperative to control her blood sugar in the perioperative period. Fingersticks here ranging 224-352, start moderate scale sliding scale insulin. Start low as patient is otherwise insulin naive. She might experience more perioperative complications such as delayed wound healing # A. fib with RVR Continue atenolol to prevent perioperative worsening of A. fib. Noted to be tachycardic to 109 today, however per chart review does not appear to have received her atenolol. not on anticoagulation though chads vasc score is 4 Will avoid starting anticoagulation in the immediate post op period- referral to cardiology as an outpatient. In the interim can increase aspirin to 325 mg daily upon discharge if okay per surgical team. DVT prophylaxis: Lovenox 40. Full code Attestations Medical Necessity Statement*: Postop monitoring after ORIF with intramedullary nailing. Plan for discharge with home health in the upcoming 24 to 48 hours. Coding Level of Care Code Acute Cafeteria Monitor for Quincy Valencia Diagnoses Fracture, intertrochanteric, right femur S72.144A Encounter type: initial encounter Fracture alignment: nondisplaced Fracture type: closed Diabetes E11.9 Adult onset hypothyroidism E03.8 Atrial fibrillation I48.91
--- NOTE | 2020-02-16 16:40 | PM.PN ---
Subjective Subjective: Interval history: Patient states pain is better. Kerr catheter discontinued and passing urine. Tolerating p.o. intake. Vitals/I&O/Wt Last Vital Signs Temp 98.0 F 02/16/20 15:03 Pulse 109 H 02/16/20 15:03 Resp 18 02/16/20 15:03 BP 102/67 02/16/20 15:03 Pulse Ox 97 02/16/20 15:03 02/16/20 02/16/20 02/16/20 06:59 14:59 22:59 Intake Total 1232.667 / 2212.667 60 / 60 Output Total 1650 / 2150 1000 / 1000 Balance -417.333 / 62.667 -940 / -940 Weight last 48 hrs Weight 168 lb Physical Exam Narrative: EXAM NARRATIVE: Right hip dressing clean and dry. Expected swelling right thigh. Urinary Catheter Management^: Kerr: Cath Placed During This Visit: yes, but has since been removed by the nurse Reason for Continuing Indwelling Catheter: Perioperative Use in Selected Surgeries Urinary Catheter Date of Insertion: 02/15/20 Urinary Catheter Time of Insertion: 00:05 Date Urinary Catheter Removed: 02/16/20 Time Urinary Catheter Discontinued: 08:10 Data : 02/16/20 05:02 02/16/20 05:02 A&P Assessment and plan (1) Postoperative state: Continue to mobilize with therapy. May need long term placement. Her family has expressed the desire to care for her own at home. I am not certain this will be possible. Status: Acute Attestations Medical Necessity Statement*: As per medicine Coding Level of Care Code Acute Musician Instrumental for Quincy Valencia Diagnoses Postoperative state Z98.890
[2020-02-16 16:49] LABS: Glucose Point of Care 301 mg/dL (70-110)
[2020-02-16 19:53] VITALS: BP 126/70; PULSE 113; RESP 18; TEMP 36.9; O2SAT 99
[2020-02-16 21:07] LABS: Glucose Point of Care 320 mg/dL (70-110)
[2020-02-17] VITALS: BP 111/68; PULSE 108; RESP 18; TEMP 37.2; O2SAT 94
[2020-02-17] MEDS: TRAMadol 50 mg Tablet PO ×3 (01:18→16:35)
[2020-02-17 01:24] LABS: Glucose Point of Care 204 mg/dL (70-110)
[2020-02-17 04:00] VITALS: BP 94/59; PULSE 114; RESP 18; TEMP 37.2; O2SAT 90
[2020-02-17] MEDS: enoxaparin 40 mg/0.4 mL Syringe SUBCUT (06:01)
[2020-02-17 06:14] LABS: Glucose Point of Care 239 mg/dL (70-110)
[2020-02-17] MEDS: sennosides-docusate Tablet 1 TAB PO (07:44)
[2020-02-17] MEDS: thyroid 60 mg Tablet 30 MG PO (07:44)
[2020-02-17] MEDS: aspirin 81 mg EC Tablet PO (07:44)
[2020-02-17 07:55] VITALS: BP 88/51; PULSE 108; RESP 18; TEMP 37.2; O2SAT 93
[2020-02-17 11:09] LABS: Glucose Point of Care 277 mg/dL (70-110)
[2020-02-17 11:31] VITALS: BP 100/64; PULSE 72; RESP 16; TEMP 36.9; O2SAT 96
--- NOTE | 2020-02-17 13:19 | PM.PN ---
Subjective Subjective: Interval history: Patient doing very well in therapy. Up walking with walker and even able to do steps. Good p.o. intake. Pain under good control Vitals/I&O/Wt Last Vital Signs Temp 98.5 F 02/17/20 11:31 Pulse 72 02/17/20 11:31 Resp 16 02/17/20 11:31 BP 100/64 02/17/20 11:31 Pulse Ox 96 02/17/20 11:31 02/16/20 02/17/20 02/17/20 22:59 06:59 14:59 Intake Total 1216 / 1276 780 / 780 Output Total 1250 / 2250 650 / 2900 Balance -34 / -974 -650 / -1624 780 / 780 Physical Exam Narrative: EXAM NARRATIVE: Right hip dressing clean and dry. Some swelling right thigh Urinary Catheter Management^: Kerr: Cath Placed During This Visit: yes, but has since been removed by the nurse Reason for Continuing Indwelling Catheter: Decision to DC Catheter Urinary Catheter Date of Insertion: 02/15/20 Urinary Catheter Time of Insertion: 00:05 Date Urinary Catheter Removed: 02/16/20 Time Urinary Catheter Discontinued: 08:15 Data : 02/16/20 05:02 02/16/20 05:02 A&P Assessment and plan (1) Postoperative state: The patient is making excellent progress. I anticipate our ultimate discharge to home. Status: Acute Attestations Medical Necessity Statement*: As per medicine Coding Level of Care Code Acute Director Special Education for Quincy Valencia Diagnoses Postoperative state Z98.890
--- NOTE | 2020-02-17 13:25 | P.DS_ITS ---
Discharge Providers Date of Admission: 02/14/20 22:38 Date of Discharge: February 17, 2020 Attending Provider at Admission: Hannah Page MD Attending Provider at Discharge: Shola Hernández MD Primary Care Provider: BETZY Samano Diagnoses at Discharge Discharge Diagnosis (1) Postoperative state: Status: Acute Reason for Visit Reason for Visit: FALL/HIP PAIN Hospital Course Discharge Summary: This is a 79-year-old female with a past medical history of atrial fibrillation not taking at anticoagulation, history of hypothyroidism noncompliant with medications, history of type 2 diabetes mellitus, noncompliant with medications, who presents to [facility] status post fall Patient was found to have a right hip fracture secondary to a fall, status post open reduction internal fixation with IM nail by Dr. Troy, tolerated the surgical procedure well, discharged home on home health care On admission patient was found to have a TSH of 8.24, admits that she takes her thyroid medication inconsistently, continue home medication, with follow-up with primary care provider in 1 week, repeat TSH in 1 month Patient was also found to have poorly controlled type 2 diabetes mellitus on admission, hemoglobin A1c 8.8, she was discharged home on a NovoLog sliding scale, diabetic education, advised to check blood sugars 3 times daily, if blood sugar in the 500's come back to emergency room, blood sugar less than 60 drink orange juice or eat a hard candy and come back to the emergency room. Unfortunately patient has an allergy to Metformin, but advised to talk to primary care provider about GLP-1 analogs or other equivalents. For her atrial fibrillation, patient takes atenolol 25 mg p.o. twice daily at home, here her blood pressures have been soft, so no doses of atenolol were given, on discharge atenolol was discontinued. During her hospital admission, she remained in A. fib, heart rates between 70s-110, no chest pain, no palpitations patient, she was discharged on Cardizem 30 mg every 6 hours. In addition patient states that she has not been taking her Xarelto for a long period of time for atrial fibrillation due to noncompliance. At one point she was on Eliquis but she stopped taking the medication due to angioedema. She does not want to take Coumadin. Denies a history of GI bleeds. Denies a history of bloody or black stools. After discussion the risk and benefits of anticoagulation, all questions answered, voiced understanding, agreed to proceed with Xarelto, with a follow-up with cardiology in a few weeks. Physical Exam Const: COMMON NORMALS: no acute distress and patient oriented x3 HENMT: COMMON NORMALS: normocephalic HEAD & SCALP: normocephalic Neck/C-Spine: COMMON NORMALS: no JVD Resp: COMMON NORMALS: normal respiratory effort, No retractions, No use of accessory muscles and clear to auscultation bilaterally AUSCULTATION: clear to auscultation bilaterally Cardio: COMMON NORMALS: no JVD, regular rate, regular rhythm, S1 normal heart sound present and S2 normal heart sound present RATE: regular rate RHYTHM: regular rhythm HEART SOUNDS: S1 normal heart sound present and S2 normal heart sound present GI: COMMON NORMALS: Normal to inspection, nondistended, normoactive bowel sounds present, Soft to palpation, non-tender, No hepatosplenomegaly present, no masses and no bruits PALPATION: Yes Soft to palpation and Yes No hepatosplenomegaly present Extremity: COMMON NORMALS: capillary refill normal, no clubbing, cyanosis or edema, no calf tenderness and no pedal edema Neuro: COMMON NORMALS: patient oriented x3 Psych: COMMON NORMALS: mental status grossly normal Urinary Catheter Management^: Kerr: Cath Placed During This Visit: yes, but has since been removed by the nurse Reason for Continuing Indwelling Catheter: Decision to DC Catheter Urinary Catheter Date of Insertion: 02/15/20 Urinary Catheter Time of Insertion: 00:05 Date Urinary Catheter Removed: 02/16/20 Time Urinary Catheter Discontinued: 08:15 Discharge Data Data Completed and Pending: Completed Studies During Hospitalization Category Date Time Status XR femur RT min 2 V* [id number] Routine Exams 02/15/20 Completed XR femur RT min 2 V* [id number] Stat Exams 02/14/20 21:06 Completed XR hip RT 2-3V wo /w pel* [id number] Stat Exams 02/14/20 21:06 Completed Labs from last 24 hours 02/17/20 02/17/20 02/17/20 11:00 06:07 01:21 POC Glucose 277 239 204 02/16/20 02/16/20 21:01 16:45 POC Glucose 320 301 Vitals: Last Vital Signs Temp 98.5 F 06/08/20 11:31 Pulse 72 02/17/20 11:31 Resp 16 02/17/20 11:31 BP 100/64 02/17/20 11:31 Pulse Ox 96 02/17/20 11:31 Discharge Plan Discharge Patient Disposition: Home, Self-Care Condition: Stable Prescriptions: New Xarelto 10 mg Tablet 20 mg PO DAILY 30 Days Qty: 30 RF: 0 diltiazem HCl 30 mg Tablet 30 mg PO Q6H 30 Days Qty: 120 RF: 0 Novolog Flexpen U-100 Insulin 100 unit/mL (3 mL) insulin pen See Rx Instructions .ROUTE .COMPLEX Qty: 15 RF: 0 Continued Aspirin Low Dose 81 mg 81 mg PO DAILY RF: 0 INSOLE AND HEEL STIFFENER Thyroid 30 mg tablet 30 mg PO QDAY 30 Days Qty: 30 RF: 2 Discontinued atenolol 25 mg 25 mg PO BID RF: 0 Discharge Orders: Discharge Order (Routine); Ordered 02/17/20 Ordered By: Shola Hernández Referrals: Lamont Ribera FNP-C [Primary Care Provider] - 1 week Hannah Liu MD [Physician] - 1 week Rafael Troy MD [Physician] - 2 weeks Discharge Diet: Cardiac and Diabetic Discharge Activity: As per PT/OT instructions Patient Instructions: Atrial Fibrillation, Diabetes and Diet, Diltiazem (By mouth), Insulin Aspart, Recombinant (Injection), Rivaroxaban (By mouth), Atrial Fibrillation (DC), How to Check Your Blood Sugar (GEN), Diabetes Mellitus Type 2 in Adults (GEN), How to Give a Subcutaneous Injection (DC), Basic Carbohydrate Counting (GEN), Diabetic Retinopathy (GEN), Diabetic Foot Ulcers (DC) Activity Restrictions/Additional Instructions: -For type 2 diabetes mellitus, check blood sugars 3 times daily, record blood sugars and blood sugar log, if blood sugar in the 500s come back to the emergency room, if blood sugar less than 60 drink orange juice or a hard candy and come back to the emergency room -Please follow-up with primary care in 1 week -For atrial fibrillation please follow-up with cardiology in 1 week -I have stopped atenolol due to low blood pressures -Continue Cardizem 30 mg every 6 hours -I have started Xarelto 20 mg once daily in the evening, if you have bloody or black stools, bloody cough, bloody vomit please come back to the emergency room -Please use levothyroxine 30 mg daily as prescribed, recheck TSH in 1 month Discharge Attestations Time Spent in Discharge Care*: less than 30 min Quality Metrics Clinical Quality Measures During this hospital stay, did patient experience: None Coding Level of Care Code Acute Intercell Connector Placer for Chg Fwd Diagnoses Postoperative state Z98.890
[2020-02-17] MEDS: dilTIAZem 30 mg Tablet PO (13:40)
[2020-02-17 14:12] VITALS: BP 100/64; PULSE 72; RESP 16; TEMP 36.9; O2SAT 96
--- NOTE | 2020-02-17 14:32 | PC.SOCIAL ---
*IMM* Patient was given the IM from [facility]. Placed in chart. Patient received a copy.
[2020-02-17 15:25] VITALS: BP 112/70; PULSE 113; RESP 18; TEMP 36.9; O2SAT 94
[2020-02-17] MEDS: rivaroxaban 10 mg Tablet 20 MG PO (16:59)
--- NOTE | 2020-02-17 17:43 | PC.NURSE ---
discharge instructions given to pt, all questions answered. Pt was instructed and taught to give herself subcutaneous insulin injections, return demonstration. pt verbalized understanding and states that she will take her blood sugar 3 times a day and record it to take with her to follow up appointments.
--- NOTE | 2020-02-18 16:26 | PC.SOCIAL ---
Verified with Dr Phu monteiro to switch Novolog to Humalog due to insurance will not cover Novalog. Updated [facility] in [place]
== END 2020-02-17 17:59 | disposition home or self-care (01) | DRG 482 ==
LOC: ER 21:35 → MEDSURG 23:47
PROVIDERS: Family Medicine; Orthopaedic Surgery; Student in an Organized Health Care Education/Training Program; Admitting Provider Internal Medicine; PCP Nurse Practitioner; Visit Provider Family Medicine
PROC: 0QS606Z Reposition Right Upper Femur with Intramedullary Internal Fixation Device, Open Approach (ICD-10-PCS; CPT 27245; principal; 2020-02-15 14:30)
DX: S72.144A Nondisplaced intertrochanteric fracture of right femur, initial encounter for closed fracture (principal); W01.0XXA Fall on same level from slipping, tripping and stumbling without subsequent striking against object, initial encounter; E03.9 Hypothyroidism, unspecified; I48.91 Unspecified atrial fibrillation; E11.65 Type 2 diabetes mellitus with hyperglycemia; I95.9 Hypotension, unspecified; Z79.82 Long term (current) use of aspirin; Z91.128 Patient's intentional underdosing of medication regimen for other reason
CPT/HCPCS: 12345; 36415; 36416; 51702; 73502; 73552; 76000; 80048; 80053; 82962; 85025; 85610; 96372; 96375; 97116; 97161; 97165; 97530; 97535; 99283; C1713; C1776; J0330; J0690; J1100; J1650; J1815; J2001; J2405; J2704; J3010; J7030

== ENCOUNTER → 2020-02-27 16:22 | Outpatient (BNVA) | payer MEDICARE, SELFPAY | PROVIDERS: PCP Nurse Practitioner; Visit Provider Nurse Practitioner | DX: E11.65 Type 2 diabetes mellitus with hyperglycemia (principal); Z79.4 Long term (current) use of insulin; I48.91 Unspecified atrial fibrillation | CPT/HCPCS: 85025 ==

== ENCOUNTER → 2020-03-30 13:34 | Outpatient (BNVA) | payer MEDICARE, SELFPAY | PROVIDERS: PCP Nurse Practitioner; Visit Provider Orthopaedic Surgery | DX: Z47.89 Encounter for other orthopedic aftercare (principal) | CPT/HCPCS: 73503 ==

== ENCOUNTER → 2020-05-06 09:50 | Outpatient (BNVA) | payer MEDICARE, SELFPAY | PROVIDERS: PCP Nurse Practitioner; Visit Provider Nurse Practitioner | DX: E11.65 Type 2 diabetes mellitus with hyperglycemia (principal); E55.9 Vitamin D deficiency, unspecified; I48.91 Unspecified atrial fibrillation; R20.2 Paresthesia of skin; M25.519 Pain in unspecified shoulder; H60.90 Unspecified otitis externa, unspecified ear; Z79.4 Long term (current) use of insulin | CPT/HCPCS: 72040; 73030; 80053; 82043; 82306; 82607; 83036; 84443; 85025 ==

== ENCOUNTER → 2020-05-15 10:32 | Outpatient (BNVA) | payer MEDICARE, SELFPAY | PROVIDERS: PCP Nurse Practitioner; Visit Provider Orthopaedic Surgery | DX: Z48.89 Encounter for other specified surgical aftercare (principal) | CPT/HCPCS: 73502 ==

== ENCOUNTER → 2020-08-04 09:28 | Outpatient (BNVA) | payer MEDICARE, SELFPAY | PROVIDERS: PCP Nurse Practitioner; Visit Provider Nurse Practitioner | DX: E55.9 Vitamin D deficiency, unspecified (principal); E11.65 Type 2 diabetes mellitus with hyperglycemia; I48.91 Unspecified atrial fibrillation; E03.8 Other specified hypothyroidism; Z79.4 Long term (current) use of insulin | CPT/HCPCS: 80053; 80061; 81000; 82043; 82306; 83036; 84443 ==

== ENCOUNTER → 2020-12-04 08:04 | Outpatient (BNVA) | payer MEDICARE, SELFPAY | PROVIDERS: PCP Nurse Practitioner; Visit Provider Nurse Practitioner | DX: E03.8 Other specified hypothyroidism (principal); E11.65 Type 2 diabetes mellitus with hyperglycemia; E55.9 Vitamin D deficiency, unspecified; Z79.4 Long term (current) use of insulin; I48.19 Other persistent atrial fibrillation | CPT/HCPCS: 80053; 80061; 82306; 83036; 84443; 85025 ==

== ENCOUNTER → 2021-02-17 14:30 | Outpatient (BNVA) | payer MEDICARE, SELFPAY | PROVIDERS: PCP Nurse Practitioner; Visit Provider Nurse Practitioner | DX: E03.8 Other specified hypothyroidism (principal); E11.65 Type 2 diabetes mellitus with hyperglycemia; E55.9 Vitamin D deficiency, unspecified | CPT/HCPCS: 80053; 82306; 83036; 84443 ==

== ENCOUNTER → 2021-05-31 08:53 | Outpatient (BNVA) | payer MEDICARE, SELFPAY | PROVIDERS: PCP Nurse Practitioner; Visit Provider Nurse Practitioner | DX: E55.9 Vitamin D deficiency, unspecified (principal); E11.65 Type 2 diabetes mellitus with hyperglycemia; E03.8 Other specified hypothyroidism; I48.91 Unspecified atrial fibrillation | CPT/HCPCS: 80053; 80061; 82043; 82306; 83036; 84443; 85025 ==

== ENCOUNTER → 2021-09-14 08:42 | Outpatient (BNVA) | payer MEDICARE, SELFPAY | PROVIDERS: PCP Nurse Practitioner; Visit Provider Nurse Practitioner | DX: E03.8 Other specified hypothyroidism (principal); E11.65 Type 2 diabetes mellitus with hyperglycemia | CPT/HCPCS: 80053; 83036; 84443; 85025 ==

== ENCOUNTER 2021-12-16 14:25 | Outpatient (CLI) | payer MEDICARE, SELFPAY ==
--- NOTE | 2021-12-16 15:30 | CT_ITS ---
WS: [id number] CT ABDOMEN AND PELVIS NONCONTRAST HISTORY: Abdominal bruit. TECHNIQUE: Imaging performed through the abdomen and pelvis. Coronal and sagittal reformats are submi tted. All CT scans at [facility] use at least one of these dose optimization techniques: auto mated exposure control; mA and/or kV adjustment per patient size (includes targeted exams where dose is matched to clinical indication); or iterative reconstruction. DLP: 1024.34 mGy.cm COMPARISON: None available. Lower thorax: Minimal groundglass attenuation at the LEFT lung base. No nodules. Heart is moderately enlarged. Liver: Heterogeneous appearance of the liver with a few scattered granulomata. No mass occupying lesi on is identified. Limited evaluation without IV contrast. No bile duct dilatation. Gallbladder: Not identified. May have been surgically removed. Common bile duct is dilated to 1.6 cm. No calcification in the distal common bile duct. Pancreas: Limited evaluation of the pancreas without IV contrast. Pancreas is atrophied. The duct is not dilated. Common bile duct at pancreatic head is dilated. Spleen: Normal. Adrenal glands: Normal. No mass. Right kidney: Normal size with nonobstructing calcifications. Left kidney: Normal size kidney with no mass or hydronephrosis. Aorta: Mild atherosclerosis abdominal aorta with no aneurysm. No significant calcific burden at the o rigin of the mesenteric arteries. There is a small amount calcification throughout the aorta. No free fluid, intraperitoneal air or significant lymphadenopathy. GI tract: Moderately distended stomach with contrast. No small bowel obstruction. Diffuse fecal retention. The appendix is not identified. No inflammatory changes. Abdominal wall: Negative. No hernia. Pelvis: Atrophic partially calcified uterus. Small caliber ovaries. No free fluid or adenopathy. Osseous structures: Prior fixation RIGHT femoral fracture. Mild scoliosis and curvature lumbar spine. No fractures. CT/CT abdomen pelvis wo con [id number] IMPRESSION: 1. Liver is enlarged and heterogeneous. Without IV contrast cannot exclude a m ass. 2. Common bile duct is dilated. No stone in the distal common bile duct. Ultra sound evaluation may be helpful to evaluate the common bile duct and pancreatic head. 3. Gallbladder not identified. May have been surgically removed at that histor y is not provided. 4. No ascites or adenopathy. 5. Mild atherosclerosis aorta with no aneurysm.
== END 2021-12-16 14:26 | disposition home or self-care (01) ==
LOC: RAD 14:28
PROVIDERS: PCP Nurse Practitioner; Visit Provider Nurse Practitioner
DX: R09.89 Other specified symptoms and signs involving the circulatory and respiratory systems (principal); R16.0 Hepatomegaly, not elsewhere classified; I70.0 Atherosclerosis of aorta
CPT/HCPCS: 74176; 80053; 80061; 82043; 82306; 83036; 84443

== ENCOUNTER → 2021-12-21 09:41 | Outpatient (BNVA) | payer MEDICARE, SELFPAY | PROVIDERS: PCP Nurse Practitioner; Visit Provider Nurse Practitioner | DX: R10.9 Unspecified abdominal pain (principal) | CPT/HCPCS: 74018; 81000; 85025 ==

== ENCOUNTER → 2022-03-15 09:07 | Outpatient (BNVA) | payer MEDICARE, SELFPAY | PROVIDERS: PCP Nurse Practitioner; Visit Provider Nurse Practitioner Family | DX: I48.19 Other persistent atrial fibrillation (principal); Z79.01 Long term (current) use of anticoagulants | CPT/HCPCS: 99213; 99214 ==

== ENCOUNTER → 2022-03-17 10:43 | Outpatient (BNVA) | payer MEDICARE, SELFPAY | PROVIDERS: PCP Nurse Practitioner; Visit Provider Nurse Practitioner | DX: E11.65 Type 2 diabetes mellitus with hyperglycemia (principal); E55.9 Vitamin D deficiency, unspecified; I48.19 Other persistent atrial fibrillation; E03.8 Other specified hypothyroidism | CPT/HCPCS: 80053; 80061; 83036; 84443 ==

== ENCOUNTER → 2022-08-18 14:14 | Outpatient (BNVA) | payer MEDICARE, SELFPAY | PROVIDERS: PCP Nurse Practitioner; Visit Provider Nurse Practitioner | DX: E03.8 Other specified hypothyroidism (principal); E11.65 Type 2 diabetes mellitus with hyperglycemia; E55.9 Vitamin D deficiency, unspecified; I48.19 Other persistent atrial fibrillation | CPT/HCPCS: 80053; 80061; 82043; 82306; 83036; 84443 ==

== ENCOUNTER → 2022-10-28 09:05 | Outpatient (BNVA) | payer MEDICARE, SELFPAY | PROVIDERS: PCP Nurse Practitioner; Visit Provider Internal Medicine Cardiovascular Disease | DX: I48.19 Other persistent atrial fibrillation (principal); Z79.01 Long term (current) use of anticoagulants; E11.65 Type 2 diabetes mellitus with hyperglycemia; Z79.84 Long term (current) use of oral hypoglycemic drugs; E03.8 Other specified hypothyroidism | CPT/HCPCS: 99213 ==

== ENCOUNTER → 2022-11-10 10:20 | Outpatient (BNVA) | payer MEDICARE, SELFPAY | PROVIDERS: PCP Nurse Practitioner; Visit Provider Nurse Practitioner | DX: E11.65 Type 2 diabetes mellitus with hyperglycemia (principal); E03.8 Other specified hypothyroidism | CPT/HCPCS: 80053; 83036; 84443; 85025 ==

== ENCOUNTER → 2023-03-03 11:12 | Outpatient (BNVA) | payer MEDICARE, SELFPAY | PROVIDERS: PCP Nurse Practitioner; Visit Provider Nurse Practitioner | DX: E11.65 Type 2 diabetes mellitus with hyperglycemia (principal); E55.9 Vitamin D deficiency, unspecified | CPT/HCPCS: 80053; 80061; 82306; 83036; 83735; 84443; 85025 ==

== ENCOUNTER → 2023-04-14 11:16 | Outpatient (BNVA) | payer MEDICARE, SELFPAY | PROVIDERS: PCP Nurse Practitioner; Visit Provider Internal Medicine Cardiovascular Disease | DX: I48.19 Other persistent atrial fibrillation (principal); Z79.01 Long term (current) use of anticoagulants; E11.65 Type 2 diabetes mellitus with hyperglycemia; E03.8 Other specified hypothyroidism; Z79.84 Long term (current) use of oral hypoglycemic drugs | CPT/HCPCS: 99214 ==

== ENCOUNTER → 2023-07-17 08:47 | Outpatient (BNVA) | payer MEDICARE, SELFPAY | PROVIDERS: PCP Nurse Practitioner; Visit Provider Nurse Practitioner | DX: Z23 Encounter for immunization (principal); E11.65 Type 2 diabetes mellitus with hyperglycemia; E55.9 Vitamin D deficiency, unspecified; E03.8 Other specified hypothyroidism; I48.19 Other persistent atrial fibrillation | CPT/HCPCS: 80053; 82306; 83036; 84443; 85025 ==

== ENCOUNTER → 2023-08-22 08:59 | Outpatient (BNVA) | payer MEDICARE, SELFPAY | PROVIDERS: PCP Nurse Practitioner; Visit Provider Nurse Practitioner | DX: R19.5 Other fecal abnormalities (principal); E03.8 Other specified hypothyroidism; R19.4 Change in bowel habit | CPT/HCPCS: 80053; 84443; 85025 ==

== ENCOUNTER 2023-08-24 12:48 | Outpatient (CLI) | payer MEDICARE, SELFPAY | END 2023-08-24 12:49 | disposition home or self-care (01) | LOC: LAB 12:48 | PROVIDERS: PCP Nurse Practitioner; Visit Provider Nurse Practitioner | DX: R19.5 Other fecal abnormalities (principal) | CPT/HCPCS: 83630; 87045; 87427; 87449 ==

== ENCOUNTER → 2023-10-16 10:00 | Outpatient (BNVA) | payer MEDICARE, SELFPAY | PROVIDERS: PCP Nurse Practitioner; Visit Provider Nurse Practitioner Family | DX: I48.19 Other persistent atrial fibrillation (principal) | CPT/HCPCS: 99213 ==

== ENCOUNTER → 2023-10-31 10:18 | Outpatient (BNVA) | payer MEDICARE, SELFPAY | PROVIDERS: PCP Nurse Practitioner; Visit Provider Nurse Practitioner | DX: E11.9 Type 2 diabetes mellitus without complications (principal); E03.8 Other specified hypothyroidism | CPT/HCPCS: 80053; 83036; 84443 ==

== ENCOUNTER → 2024-01-16 11:39 | Outpatient (BNVA) | payer MEDICARE, SELFPAY | PROVIDERS: PCP Nurse Practitioner; Visit Provider Nurse Practitioner | DX: E11.65 Type 2 diabetes mellitus with hyperglycemia (principal); E55.9 Vitamin D deficiency, unspecified | CPT/HCPCS: 80053; 81000; 82043; 82306; 83036 ==

== ENCOUNTER → 2024-04-02 11:17 | Outpatient (BNVA) | payer MEDICARE, SELFPAY | PROVIDERS: PCP Nurse Practitioner; Visit Provider Nurse Practitioner | DX: E11.9 Type 2 diabetes mellitus without complications (principal); E03.8 Other specified hypothyroidism | CPT/HCPCS: 80053; 80061; 83036; 84443 ==

== ENCOUNTER → 2024-06-13 10:35 | Outpatient (BNVA) | payer MEDICARE, SELFPAY | PROVIDERS: PCP Nurse Practitioner; Visit Provider Internal Medicine | DX: I48.19 Other persistent atrial fibrillation (principal); E11.65 Type 2 diabetes mellitus with hyperglycemia; I35.0 Nonrheumatic aortic (valve) stenosis; Z79.01 Long term (current) use of anticoagulants; E03.8 Other specified hypothyroidism; Z87.891 Personal history of nicotine dependence | CPT/HCPCS: 99214 ==

== ENCOUNTER → 2024-06-18 10:54 | Outpatient (BNVA) | payer MEDICARE, SELFPAY | PROVIDERS: PCP Nurse Practitioner; Visit Provider Nurse Practitioner | DX: E11.65 Type 2 diabetes mellitus with hyperglycemia (principal); E03.8 Other specified hypothyroidism; Z28.21 Immunization not carried out because of patient refusal; Z78.9 Other specified health status; I48.19 Other persistent atrial fibrillation | CPT/HCPCS: 80053; 80061; 83036; 84443; 85025 ==

== ENCOUNTER → 2024-08-27 08:58 | Outpatient (BNVA) | payer MEDICARE, SELFPAY | PROVIDERS: PCP Nurse Practitioner; Visit Provider Podiatrist Foot & Ankle Surgery | DX: L60.3 Nail dystrophy (principal); E11.65 Type 2 diabetes mellitus with hyperglycemia; G62.9 Polyneuropathy, unspecified | CPT/HCPCS: 11721; 99203 ==

== ENCOUNTER → 2024-11-21 09:04 | Outpatient (BNVA) | payer MEDICARE, SELFPAY | PROVIDERS: PCP Nurse Practitioner; Visit Provider Nurse Practitioner | DX: E11.65 Type 2 diabetes mellitus with hyperglycemia (principal); E11.9 Type 2 diabetes mellitus without complications; E03.8 Other specified hypothyroidism | CPT/HCPCS: 80053; 80061; 83036; 84443 ==

== ENCOUNTER → 2025-02-20 09:07 | Outpatient (BNVA) | payer MEDICARE, SELFPAY | PROVIDERS: PCP Nurse Practitioner; Visit Provider Nurse Practitioner | DX: E11.65 Type 2 diabetes mellitus with hyperglycemia (principal) | CPT/HCPCS: 80053; 83036; 84443; 85025 ==

== ENCOUNTER → 2025-03-13 14:03 | Outpatient (BNVA) | payer MEDICARE, SELFPAY | PROVIDERS: PCP Nurse Practitioner; Visit Provider Internal Medicine | DX: R07.89 Other chest pain (principal); I48.19 Other persistent atrial fibrillation; Z79.01 Long term (current) use of anticoagulants; E11.65 Type 2 diabetes mellitus with hyperglycemia; Z79.84 Long term (current) use of oral hypoglycemic drugs; E03.9 Hypothyroidism, unspecified; I35.0 Nonrheumatic aortic (valve) stenosis | CPT/HCPCS: 99214 ==

== ENCOUNTER → 2025-05-15 09:01 | Outpatient (BNVA) | payer MEDICARE, SELFPAY | PROVIDERS: PCP Nurse Practitioner; Visit Provider Nurse Practitioner | DX: E11.65 Type 2 diabetes mellitus with hyperglycemia (principal); E03.8 Other specified hypothyroidism | CPT/HCPCS: 80053; 80061; 82043; 82607; 83036; 84443 ==

== ENCOUNTER → 2025-07-31 09:46 | Outpatient (BNVA) | payer MEDICARE, SELFPAY | PROVIDERS: PCP Nurse Practitioner; Visit Provider Nurse Practitioner | DX: E11.65 Type 2 diabetes mellitus with hyperglycemia (principal); E03.8 Other specified hypothyroidism | CPT/HCPCS: 80053; 83036; 84443 ==